=== PATIENT | female | born 1980 | race Caucasian/White ===

== ENCOUNTER → 2020-06-01 | Day surgery (SDC) | payer OTHER ==
[~2020-06-01] MED LIST: AMOXICILLIN500 M2 PO; NEXPLANON68 MG ID; PEPCID AC20 MG PO; PERCOCET 5-3251 EACH PO; PREDNISONE1 MG PO
[2020-06-01 07:19] LABS: HCG (URINE) SCREEN NEGATIVE (NEGATIVE)
[2020-06-01 07:46] LABS: BASOPHIL 0.5 % (0-2); EOSINOPHIL 3.2 % (0-5); HCT 39.3 % (37.0-47.0); HGB 13.2 g/dl (12.5-16.0); MCH 31.3 pg (25.0-31.0); MCHC 33.6 g/dL (32.0-36.0); MCV 93.1 fL (78.0-100.0); MONOCYTE 9.8 % (0-12); MPV 9.7 fL (6.0-9.5); NRBC 0; PLT 235 K/uL (150-400); RBC 4.22 M/uL (4.20-5.40); RDW 12.3 % (11.5-14.0)
== END | disposition home or self-care (01) ==
LOC: FAS 06:50
PROVIDERS: Anesthesiology; Oral & Maxillofacial Surgery
DX: K02.9 Dental caries, unspecified (principal)
CPT/HCPCS: D7210; 36415; 84703; 85025; J1100; J2250; J2405; J2704; J3010; J7120